=== PATIENT | male | born 1995 | race Caucasian/White ===

== ENCOUNTER 2016-04-28 02:31 | Emergency (ER) | payer BC ==
[2016-04-28] MEDS ORDERED: IV NORMAL SALINE 1000ML BAG 1,000 ML IV SCH (03:30)
[2016-04-28 03:37] LABS: BASO % 1 % (0-3); EOS % 3 % (0-3); HEMATOCRIT 42.4 % (39.0-53.0); HEMOGLOBIN 14.2 g/dL (13.0-17.5); LYMPH # 2.8 x10^3/uL (1.0-4.8); LYMPH % 39 % (24-48); MEAN CORPUSCULAR HEMOGLOBIN 29 pg (25-35); MEAN CORPUSCULAR HGB CONC 33 g/dL (31-37); MEAN CORPUSCULAR VOLUME 88 fL (79-100); MONO % 13 % (0-9); NEUT % 45 % (31-73); PLATELET COUNT 220 x10^3/uL (140-400); RED BLOOD COUNT 4.84 x10^6/uL (4.30-5.70); RED CELL DISTRIBUTION WIDTH 13.3 % (11.5-14.5); WHITE BLOOD COUNT 7.3 x10^3/uL (4.0-11.0)
[2016-04-28 03:48] LABS: ANION GAP 12 (6-14); BLOOD UREA NITROGEN 7 mg/dL (8-26); CALCIUM 8.8 mg/dL (8.5-10.1); CARBON DIOXIDE 26 mmol/L (21-32); CHLORIDE 106 mmol/L (98-107); CREATININE 0.7 mg/dL (0.7-1.3); GLUCOSE 102 mg/dL (70-99); POTASSIUM 3.9 mmol/L (3.5-5.1); SODIUM 144 mmol/L (136-145)
[2016-04-28 03:54] LABS: ALBUMIN 3.6 g/dL (3.4-5.0); ALK PHOS 43 U/L (46-116); ALT (SGPT) 92 U/L (16-63); AST (SGOT) 59 U/L (15-37); DIRECT BILIRUBIN < 0.1 mg/dL (0.0-0.2); MAGNESIUM 2.1 mg/dL (1.8-2.4); TOTAL BILIRUBIN 0.3 mg/dL (0.2-1.0); TOTAL PROTEIN 6.9 g/dL (6.4-8.2)
[2016-04-28 03:54] LABS: BILIRUBIN,URINE NEGATIVE (NEG); GLUCOSE,URINE NEGATIVE (NEG); NITRITE,URINE NEGATIVE (NEG); PROTEIN,URINE NEGATIVE (NEG-TRACE)
[2016-04-28 03:58] LABS: BARBITURATES NEG (NEG); BENZODIAZEPINES NEG (NEG); CANNABINOIDS POS (NEG); COCAINE NEG (NEG); METHADONE NEG (NEG); OPIATES NEG (NEG); PHENCYCLIDINE NEG (NEG)
[2016-04-28 03:59] LABS: ETHANOL, URINE NEG (NEG)
[2016-04-28 04:08] LABS: BACTERIA,URINE 0 /HPF (0-FEW); RBC,URINE 0 /HPF (0-2); SQUAMOUS EPITHELIAL CELL,UR OCC /LPF
[2016-04-28 05:00] VITALS: BP 101/55
--- NOTE | 2016-04-28 06:21 | EKG ---
[facility] [address] [place] [address] Test Date: 2016-04-28 Test Time: 03:08:14 Pat Name: CELY MIMS Department: Room: Gender: M Manager Materials Management: : 1995 Requested By: ROSALBA PONCE Order Number: [id number] Reading MD: Bia Ovalles Measurements Intervals Ransom Rate: 56 P: 26 MA: 164 QRS: 22 QRSD: 88 T: 22 QT: 424 QTc: 412 Interpretive Statements SINUS RHYTHM NORMAL ECG RI6.01 No previous ECG available for comparison Electronically Signed On 05-01-2016 20:26:38 [employer]LECTION ASSISTANT by Bia Ovalles
[2016-04-28] MEDS ORDERED: NAPROXEN 500 MG TABLET PO ONE (07:00)
[2016-04-28] MEDS ORDERED: NAPR500T3 PO (07:08)
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
[2016-04-28] MEDS ORDERED: OXYCODONE/APAP 5/325 TABLET. PO ONE (09:15)
== END 2016-04-28 12:45 | disposition short-term general hospital (02) ==
LOC: ER 02:31
DX: R45.851 Suicidal ideations (principal); R10.30 Lower abdominal pain, unspecified; G89.29 Other chronic pain; F41.9 Anxiety disorder, unspecified; F31.9 Bipolar disorder, unspecified; R16.1 Splenomegaly, not elsewhere classified; Z88.1 Allergy status to other antibiotic agents
CPT/HCPCS: 36415; 80048; 80076; 80164; 81001; 83735; 85027; 93005; 96360; 99285; G0481; G6038; J7030; 80196

== ENCOUNTER 2016-08-14 14:57 | Emergency (ER) | payer BC ==
[~2016-08-14] VITALS: Ht 182.9 cm; Wt 95.3 kg
[~2016-08-14 14:57] MED LIST: NAPR500T3 PO
[2016-08-14 15:50] LABS: BASO # 0.1 x10^3/uL (0.0-0.2); BASO % 1 % (0-3); EOS % 2 % (0-3); HEMATOCRIT 44.2 % (39.0-53.0); HEMOGLOBIN 15.3 g/dL (13.0-17.5); LYMPH % 25 % (24-48); MEAN CORPUSCULAR HEMOGLOBIN 30 pg (25-35); MEAN CORPUSCULAR HGB CONC 35 g/dL (31-37); MEAN CORPUSCULAR VOLUME 86 fL (79-100); MONO % 8 % (0-9); NEUT % 65 % (31-73); PLATELET COUNT 189 x10^3/uL (140-400); RED BLOOD COUNT 5.15 x10^6/uL (4.30-5.70); RED CELL DISTRIBUTION WIDTH 12.6 % (11.5-14.5); WHITE BLOOD COUNT 7.9 x10^3/uL (4.0-11.0)
[2016-08-14 15:59] LABS: PROTHROMBIN TIME PATIENT 12.1 SEC (11.7-14.0)
[2016-08-14 16:00] LABS: BARBITURATES POS (NEG); BENZODIAZEPINES NEG (NEG); CANNABINOIDS POS (NEG); COCAINE NEG (NEG); METHADONE NEG (NEG); OPIATES NEG (NEG); PHENCYCLIDINE NEG (NEG)
[2016-08-14 16:01] LABS: CALCIUM 9.6 mg/dL (8.5-10.1); CREATININE 1.3 mg/dL (0.7-1.3); POTASSIUM 3.9 mmol/L (3.5-5.1)
[2016-08-14 16:02] LABS: ETHANOL < 10 mg/dL (0-10)
[2016-08-14 16:06] LABS: ALBUMIN 4.3 g/dL (3.4-5.0); DIRECT BILIRUBIN 0.1 mg/dL (0.0-0.2); TOTAL BILIRUBIN 0.2 mg/dL (0.2-1.0); TOTAL PROTEIN 7.8 g/dL (6.4-8.2)
--- NOTE | 2016-08-14 17:00 | PHYS DOC ---
Past Medical History Past Medical History: Anxiety, Bipolar, Depression Past Surgical History: No Surgical History Alcohol Use: Occasionally Drug Use: Marijuana Adult General Chief Complaint Chief Complaint: SUICDAL IDEATION [facility] HPI Patient is a 20 year old male who presents with with suicidal ideation and states that he attempted suicide 2 days ago by taking multidrug overdose. States these are all prescription drugs including his and whatever else he could find in the house. States he has been sleeping for the past 2 days and had some nausea, but his sleepiness and nausea has resolved. He is currently asymptomatic other than suicidality. He denies abdominal pain, fever or chills, headache, vision changes, hallucinations, homicidality, diarrhea Review of Systems Review of Systems Constitutional: Denies fever or chills [] Eyes: Denies change in visual acuity, redness, or eye pain [] HENT: Denies nasal congestion or sore throat [] Respiratory: Denies cough or shortness of breath [] Cardiovascular: No additional information not addressed in HPI [] GI: Denies abdominal pain, nausea, vomiting, bloody stools or diarrhea [] : Denies dysuria or hematuria [] Musculoskeletal: Denies back pain or joint pain [] Integument: Denies rash or skin lesions [] Neurologic: Denies headache, focal weakness or sensory changes [] Endocrine: Denies polyuria or polydipsia [] Allergies Allergies Allergies Coded Allergies Type Severity Reaction Last Updated Verified cephalexin Allergy Intermediate 04/28/16 Yes Physical Exam Physical Exam Constitutional: Well developed, well nourished, no acute distress, non-toxic appearance. [] HENT: Normocephalic, atraumatic, bilateral external ears normal, oropharynx moist, no oral exudates, nose normal. [] Eyes: PERRLA, EOMI. [] Neck: Normal range of motion, supple. [] Cardiovascular:Heart rate regular rhythm [] Lungs & Thorax: Bilateral breath sounds clear to auscultation [] Abdomen: Bowel sounds normal, soft, no tenderness. [] Skin: Warm, dry, no erythema, no rash. [] Back: Normal ROM. [] Extremities: No tenderness, ROM intact, no edema. [] Neurologic: Alert and oriented X 3, normal motor function, normal sensory function, no focal deficits noted, cranial nerves II through XII intact. [] Psychologic: Affect flat, judgement normal, mood normal. [] Current Patient Data Vital Signs Vital Signs Date Time Temp Pulse Resp B/P (MAP) Pulse Ox O2 Delivery O2 Flow Rate FiO2 08/14/16 15:10 99.0 102 16 133/74 (93) 97 99.0 Lab Values Laboratory Tests Test 08/14/16 15:29 08/14/16 15:45 White Blood Count 7.9 x10^3/uL (4.0-11.0) Red Blood Count 5.15 x10^6/uL (4.30-5.70) Hemoglobin 15.3 g/dL (13.0-17.5) Hematocrit 44.2 % (39.0-53.0) Mean Corpuscular Volume 86 fL (79-100) Mean Corpuscular Hemoglobin 30 pg (25-35) Mean Corpuscular Hemoglobin Concent 35 g/dL (31-37) Red Cell Distribution Width 12.6 % (11.5-14.5) Platelet Count 189 x10^3/uL (140-400) Neutrophils (%) (Auto) 65 % (31-73) Lymphocytes (%) (Auto) 25 % (24-48) Monocytes (%) (Auto) 8 % (0-9) Eosinophils (%) (Auto) 2 % (0-3) Basophils (%) (Auto) 1 % (0-3) Neutrophils # (Auto) 5.1 x10^3uL (1.8-7.7) Lymphocytes # (Auto) 2.0 x10^3/uL (1.0-4.8) Monocytes # (Auto) 0.6 x10^3/uL (0.0-1.1) Eosinophils # (Auto) 0.1 x10^3/uL (0.0-0.7) Basophils # (Auto) 0.1 x10^3/uL (0.0-0.2) Prothrombin Time 12.1 SEC (11.7-14.0) Prothrombin Time INR 1.0 (0.8-1.1) Sodium Level 139 mmol/L (136-145) Potassium Level 3.9 mmol/L (3.5-5.1) Chloride Level 103 mmol/L (98-107) Carbon Dioxide Level 28 mmol/L (21-32) Anion Gap 8 (6-14) Blood Urea Nitrogen 11 mg/dL (8-26) Creatinine 1.3 mg/dL (0.7-1.3) Estimated GFR (Cockcroft-Gault) 69.0 Glucose Level 107 mg/dL (70-99) H Calcium Level 9.6 mg/dL (8.5-10.1) Total Bilirubin 0.2 mg/dL (0.2-1.0) Direct Bilirubin 0.1 mg/dL (0.0-0.2) Aspartate Amino Transferase (AST) 18 U/L (15-37) Alanine Aminotransferase (ALT) 36 U/L (16-63) Alkaline Phosphatase 86 U/L (46-116) Total Protein 7.8 g/dL (6.4-8.2) Albumin 4.3 g/dL (3.4-5.0) Salicylates Level < 2.8 mg/dL (2.8-20.0) L Salicylate Last Dose Date Salicylate Last Dose Time Ethyl Alcohol Level < 10 mg/dL (0-10) Urine Opiates Screen Neg (NEG) Urine Methadone Screen Neg (NEG) Urine Barbiturates Pos (NEG) Urine Phencyclidine Screen Neg (NEG) Urine Amphetamine/Methamphetamine Neg (NEG) Urine Benzodiazepines Screen Neg (NEG) Urine Cocaine Screen Neg (NEG) Urine Cannabinoids Screen Pos (NEG) Urine Ethyl Alcohol Neg (NEG) Laboratory Tests 08/14/16 15:29 Laboratory Tests 08/14/16 15:29 Course & Med Decision Making Course & Med Decision Making Pertinent Labs and Imaging studies reviewed. (See chart for details) Laboratory evaluation is unremarkable. PAT field representatives director has screened him and recommends and has arranged inpatient psych therapy. He will be transferred via EMS to [facility] in stable condition. Dragon Disclaimer Dragon Disclaimer This electronic medical record was generated, in whole or in part, using a voice recognition dictation system. Departure Departure Impression: Primary Impression: Suicidal ideation Additional Impression: Suicide attempt by drug ingestion Disposition: 65 XFER TO PSYCH HOSP/UNIT ([facility]) Condition: STABLE Referrals: MILENA VALENTIN (PCP) Problem Qualifiers Additional Impression: Suicide attempt by drug ingestion Encounter type: initial encounter Qualified Codes: T50.902A - Poisoning by unspecified drugs, medicaments and biological substances, intentional self-harm , initial encounter Joao CAZARES MD Aug 14, 2016 17:00
[2016-08-14 18:44] VITALS: BP 109/62
== END 2016-08-14 20:30 ==
LOC: ER 14:57
DX: T50.902A Poisoning by unspecified drugs, medicaments and biological substances, intentional self-harm, initial encounter (principal); R11.0 Nausea; F41.9 Anxiety disorder, unspecified; F31.9 Bipolar disorder, unspecified; F12.10 Cannabis abuse, uncomplicated; Z88.1 Allergy status to other antibiotic agents; Y92.89 Other specified places as the place of occurrence of the external cause
CPT/HCPCS: 36415; 80048; 80076; 80305; 80329; 85027; 85610; 99285; G0480; G0481

== ENCOUNTER 2016-10-20 12:38 | Emergency (ER) | payer BC ==
[2016-10-20] MEDS ORDERED: PROCHLORPERAZINE 10 MG/2 ML VIAL. IV ONE (13:15)
[2016-10-20] MEDS ORDERED: KETOROLAC TROMETHAMINE 30 MG/ML INJ. IV ONE (13:15)
[2016-10-20] MEDS ORDERED: diphenhydrAMINE 50 MG/ML VIAL IVP ONE (13:15)
[2016-10-20] MEDS ORDERED: IV NORMAL SALINE 1000ML BAG 1,000 ML IV ONE (13:15)
[2016-10-20] MEDS ORDERED: HALOPERIDOL LACTATE 5 MG/ML VIAL. IVP ONE (14:00)
[2016-10-20] MEDS ORDERED: oxyCODONE/APAP 5/325 1 TAB TABLET PO ONE (14:00)
--- NOTE | 2016-10-20 14:36 | PHYS DOC ---
Past Medical History Past Medical History: Anxiety, Bipolar, Depression Additional Past Medical Histor: CLUSTER HEADACHES Past Surgical History: No Surgical History Alcohol Use: None Drug Use: Marijuana Adult General Chief Complaint Chief Complaint: HEADACHE HPI HPI Patient is a 21 year old male presenting to the emergency department for evaluation of right postauricular headache that has been going on for at least several days. He says this feels the same as prior cluster headaches however he has not been able to get rid of it for the past several days. He says it is severe and causes him some nausea but no vision changes fevers chills nausea vomiting neck stiffness unilateral weakness numbness or tingling. Grandmother is concerned that he may need admission as she would like to know exactly what is going on. I asked her what she meant and she says that he has not had a diagnosis for these headaches the patient told me that he was diagnosed with cluster and migraine headaches from his paper sorter when he was 13 years old. Grandma then confirmed that he did have diagnosis for these headaches but he no longer has seen a neurologist and is not taking any medications except for Depakote. Patient is in no obvious distress with normal vital signs. Review of Systems Review of Systems Constitutional: Denies fever or chills [] Eyes: Denies change in visual acuity, redness, or eye pain [] Respiratory: Denies cough or shortness of breath [] Cardiovascular: No additional information not addressed in HPI [] GI: Denies abdominal pain. + nausea. No vomiting, bloody stools or diarrhea [] : Denies dysuria or hematuria [] Musculoskeletal: Denies back pain or joint pain [] Integument: Denies rash or skin lesions [] Neurologic: +headache. No focal weakness or sensory changes [] Current Medications Current Medications Current Medications Medications (Trade) Dose Ordered Sig/Justus Start Time Stop Time Status Last Admin Dose Admin Diphenhydramine HCl (Benadryl) 50 mg 1X ONCE 10/20/16 13:15 10/20/16 13:16 DC 10/20/16 13:28 50 MG Haloperidol Lactate (Haldol) 3 mg 1X ONCE 10/20/16 14:00 10/20/16 14:01 DC 10/20/16 14:28 3 MG Ketorolac Tromethamine (Toradol) 30 mg 1X ONCE 10/20/16 13:15 10/20/16 13:16 DC 8/16/17 13:28 30 MG Oxycodone/ Acetaminophen (Percocet 5/325) 2 tab 1X ONCE 10/20/16 14:00 10/20/16 14:01 DC 10/20/16 14:28 2 TAB Prochlorperazine Edisylate (Compazine) 10 mg 1X ONCE 10/20/16 13:15 10/20/16 13:16 DC 10/20/16 13:27 10 MG Sodium Chloride 1,000 ml @ 1,000 mls/hr 1X ONCE 10/20/16 13:15 10/20/16 14:14 DC 10/20/16 13:27 1,000 MLS/HR Allergies Allergies Allergies Coded Allergies Type Severity Reaction Last Updated Verified cephalexin Allergy Intermediate 04/28/16 Yes Physical Exam Physical Exam Constitutional: Well developed, well nourished, no acute distress, non-toxic appearance. [] HENT: Normocephalic, atraumatic, bilateral external ears normal, oropharynx moist, no oral exudates, nose normal. [] Eyes: PERRLA, EOMI, conjunctiva normal, no discharge. [] Neck: Normal range of motion, no tenderness, supple, no stridor. [] Cardiovascular:Heart rate regular rhythm, no murmur [] Lungs & Thorax: Bilateral breath sounds clear to auscultation [] Extremities: No tenderness, no cyanosis, no clubbing, ROM intact, no edema. [] Neurologic: Alert and oriented X 3, normal motor function, normal sensory function, no focal deficits noted. [ Current Patient Data Vital Signs Vital Signs Date Time Temp Pulse Resp B/P (MAP) Pulse Ox O2 Delivery O2 Flow Rate FiO2 10/20/16 14:33 66 18 174/66 (102) 97 Room Air 10/20/16 12:51 97.7 97.7 EKG EKG [] Radiology/Procedures Radiology/Procedures [] Course & Med Decision Making Course & Med Decision Making Patient started on oxygen and given IV fluids Benadryl Compazine and Toradol and his symptoms improved somewhat. Given he was still having pain and I gave him Percocet and Haldol. Pain improved significantly and had repeat normal neurologic exam. I'm somewhat concerned about writing prescriptions for him given he has had suicidal attempts in the past. Follow with a neurologist as an outpatient. Family is also requesting a sleep study which I told him could be done as an outpatient as well. Patient and family Aware and agreeable with plan for discharge and verbalized understanding of the need for short-term follow-up and strict ER return precautions discussed including worsening pain fevers vomiting or other general concerns. They were asking for a medication for home and I told him to possibly try sumatriptan and to see if this helps. Dragon Disclaimer Dragon Disclaimer This electronic medical record was generated, in whole or in part, using a voice recognition dictation system. Departure Departure Impression: Primary Impression: Headache Disposition: HOME, SELF-CARE Condition: GOOD Referrals: RAISA SALAS MD Patient Instructions: Cluster Headache Scripts Sumatriptan Succinate (SUMATRIPTAN SUCCINATE) 25 Mg Tablet 25 MG PO ONCE Y for MIGRAINE HEADACHE, #20 TAB 25mg PO once then may follow q2h up to 6 additional doses. Prov: CHELO CALDERON DO 10/20/16 Problem Qualifiers Primary Impression: Headache Headache type: unspecified Headache chronicity pattern: chronic headache Intractability: not intractable Qualified Codes: R51 - Headache CHELO CALDERON DO Oct 20, 2016 14:36
[2016-10-20] MEDS ORDERED: SUMA25TA4 PO (14:53)
[2016-10-20 15:00] VITALS: BP 107/55
== END 2016-10-20 15:04 | disposition home or self-care (01) ==
LOC: ER 12:38
DX: R51 Headache (principal); R11.0 Nausea; F41.9 Anxiety disorder, unspecified; F32.9 Major depressive disorder, single episode, unspecified; Z88.1 Allergy status to other antibiotic agents
CPT/HCPCS: 96361; 96374; 96375; 99284; J0780; J1200; J1630; J1885; J7030